=== PATIENT | male | born 1985 | race Caucasian/White ===

== ENCOUNTER 2023-10-10 10:09 | Emergency (ER) | payer MEDICAID ==
[~2023-10-10] VITALS: Ht 175.3 cm; Wt 71.6 kg
[2023-10-10 10:21] VITALS: BP 158/99; PULSE 90; RESP 20; TEMP 99.1
[2023-10-10] MEDS ORDERED: IPRATROPIUM BROM 0.5 MG/2.5ML INH SOL NEB ONE (10:45)
[2023-10-10] MEDS ORDERED: methylPREDNISolone SOD SUCC 125 MG/2 ML VL IM ONE (10:45)
[2023-10-10] MEDS ORDERED: ALBUTEROL MEDNEB 2.5 mg/3ml NEB NEB ONE (10:45)
[2023-10-10 10:57] VITALS: O2SAT 99
[2023-10-10] MEDS ORDERED: PROM1SOL4 PO (11:14)
[2023-10-10] MEDS ORDERED: ALBU108A5 IN (11:14)
[2023-10-10] MEDS ORDERED: AZIT500T66 PO (11:14)
== END 2023-10-10 11:30 | disposition home or self-care (01) ==
LOC: ER 10:09
DX: J45.909 Unspecified asthma, uncomplicated (principal)
CPT/HCPCS: 71046; 94640; 96372; 99283; J2930; J7644